=== PATIENT | female | born 1985 | race Hispanic/Latino ===

== ENCOUNTER 2016-09-04 08:38 | Observation (INO) | payer BC ==
[2016-09-03 15:38] VITALS: BMI 26.6
[2016-09-04 09:08] LABS: MEAN CELL VOLUME 92.2 fl (81.0-99.0); MEAN CORPUSCULAR HEMOGLOBIN 30.6 pg (27.0-31.0); MEAN CORPUSCULAR HGB CONC 33.1 g/dL (33.0-37.0); RED CELL DISTRIBUTION WIDTH 13.1 % (11.5-14.5); WHITE BLOOD COUNT 7.5 K/uL (4.8-10.8)
[2016-09-04] MEDS ORDERED: Bupivacaine 0.5% Inj(30mL) ONE (09:08)
[2016-09-04] MEDS ORDERED: Rocuronium 10 mg/ml (5 ml) ONE ×3 (09:45→13:05)
[2016-09-04] MEDS ORDERED: Midazolam 2 MG/2 ML VIAL ONE (09:45)
[2016-09-04] MEDS ORDERED: Propofol 10 mg/ml Inj (20 ML) ONE (09:45)
[2016-09-04] MEDS ORDERED: Succinylcholine 200 mg/10 ml Inj IV ONE (09:45)
[2016-09-04] MEDS ORDERED: ePHEDrine 50 mg/ml Inj ONE (09:45)
[2016-09-04] MEDS ORDERED: Lactated Ringer's 1,000 ML IV ONE ×3 (10:00→14:30)
[2016-09-04] MEDS ORDERED: Neostigmine Methylsulfate 3mg/3ml Syringe IV ONE (14:24)
[2016-09-04] MEDS ORDERED: Sevoflurane - Inhalation Anesthetic Liq (250 ml) ONE (14:28)
[2016-09-04] MEDS ORDERED: Lactated Ringer's 1,000 ML IV SCH (15:40)
[2016-09-04] MEDS ORDERED: HYDROmorphone 0.5 mg/0.5 ml ISec IVP PRN (15:40)
--- NOTE | 2016-09-04 16:06 | PCM.SURG1 ---
<Kenya Santiago - Last Filed: 09/04/16 16:02> Surgeon's Initial Post Op Note - Surgeon's Notes Surgeon: Dr. Barron Supervisor Mold Yard: Lizett Quintero, Dr. Santiago PGY2, Dr. Medley Anesthesia Administered By: Whiteyulia Pre-Operative Diagnosis: Endometriosis Operative Findings: see operative report Post-Operative Diagnosis: same Operation Performed: Davinci Endometriosis. Cystoscopy with b/l ureteral stenting w/ dye injection. Ureterolysis. B/L Ovarian Cystectomy Specimen/Specimens Removed: endometriosis Estimated Blood Loss: EBL {In ML}: 100 Blood Products Given: N/A Drains Used: No Drains Post-Op Condition: Good Date of Surgery/Procedure: 09/04/16 Time of Surgery/Procedure: 16:10 <Zac Barron - Last Filed: 09/08/16 14:01> Surgeon's Initial Post Op Note - Surgeon's Notes Supervisor [employer]: Lizett Quintero, Dr. 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
--- NOTE | 2016-09-04 16:12 | PCM.SURG1 ---
Surgeon's Initial Post Op Note - Surgeon's Notes Surgeon: Dr. Medley Oil Change Technician: Dr. Barron, Lizett Quintero, Dr. Santiago PGY2 Type of Anesthesia: General Endo Anesthesia Administered By: Abran Pre-Operative Diagnosis: Endometriosis Operative Findings: endometriosis with involvment of appendix and rectum Post-Operative Diagnosis: same Operation Performed: Robotic Appendectomy. Lysis of adhesions Specimen/Specimens Removed: appendix Estimated Blood Loss: EBL {In ML}: 10 Blood Products Given: N/A Drains Used: No Drains Post-Op Condition: Good Date of Surgery/Procedure: 09/04/16 Time of Surgery/Procedure: 16:12
[2016-09-04] MEDS ORDERED: Oxycodone/Acetaminophen 5/325 mg Tab PO PRN (20:00)
[2016-09-05] MEDS: Lactated Ringer's 1,000 ML IV SCH ×2 (02:14→07:30)
[2016-09-05] MEDS ORDERED: Levothyroxine 100 MCG TAB PO SCH (06:30)
--- NOTE | 2016-09-05 08:23 | CP.PCM.DIS ---
Provider - Provider Date of Admission: 09/04/16 15:54 Attending physician: Zac Barron Primary care physician: Zac Barron Time Spent in preparation of Discharge (in minutes): 20 Hospital Course - Lab Results Lab Results: Most Recent Lab Values WBC 7.5 K/uL (4.8-10.8) 09/04/16 08:55 RBC 4.45 Mil/uL (3.80-5.20) 09/04/16 08:55 Hgb 13.6 g/dL (12.0-16.0) 09/04/16 08:55 Hct 41.0 % (34.0-47.0) 09/04/16 08:55 MCV 92.2 fl (81.0-99.0) 09/04/16 08:55 MCH 30.6 pg (27.0-31.0) 09/04/16 08:55 MCHC 33.1 g/dL (33.0-37.0) 09/04/16 08:55 RDW 13.1 % (11.5-14.5) 09/04/16 08:55 Plt Count 280 K/uL (130-400) 09/04/16 08:55 Blood Type O POSITIVE 09/04/16 08:55 Blood Type Confirm O POSITIVE 09/04/16 09:07 Antibody Screen Negative 09/04/16 08:55 BBK History Checked No verified bt 09/04/16 08:55 - Hospital Course Hospital Course: 31 yo F admitted after undergoing robotic surgery for endometriosis. Pt did well postoperatively. She tolerated regular diet and was ambulating the hallways with no complaints. Pain was well controlled with PO medications. Pt was felt stable for discharge home with routine postoperative instruction and f/ u in office in 1 week. Discharge Exam - Head Exam Head Exam: NORMAL INSPECTION, NORMOCEPHALIC - Eye Exam Eye Exam: EOMI, Normal appearance Pupil Exam: NORMAL ACCOMODATION - Respiratory Exam Respiratory Exam: NORMAL BREATHING PATTERN. absent: Respiratory Distress - GI/Abdominal Exam GI & Abdominal Exam: Soft. absent: Distended, Firm, Guarding, Rebound, Tenderness Additional comments: surgical incisions C/D/I - Neurological Exam Neurological exam: Alert, Oriented x3 - Psychiatric Exam Psychiatric exam: Normal Affect, Normal Mood - Skin Skin Exam: Dry, Intact Discharge Plan - Discharge Medications Prescriptions: oxyCODONE/Acetaminophen [Percocet 5/325 mg Tab] 2 tab PO Q4 PRN #20 tab PRN Reason: Pain, Moderate (4-7) - Follow Up Plan Condition: GOOD Disposition: HOME/ ROUTINE Additional Instructions: You may remove dressings tomorrow. You may shower, no soaking in bathtub or swimming. Resume regular diet and light activity. Avoid any heavy lifting > 10lbs for 4 weeks. Make an appt. to see Dr. Barron in office in 1 week. Take percocet as prescribed for pain. Referrals: Zac Barron [Primary Care Provider] -
[2016-09-05 08:24] VITALS: BP 112/75; PULSE 88; RESP 20; TEMP 98; O2SAT 96
--- NOTE | 2016-09-05 11:22 | OP ---
PROCEDURE DATE: 09/04/2016 PREOPERATIVE DIAGNOSES: 1. Endometriosis. 2. Extensive post infectious adhesion of the uterus and cervix to the rectum. 3. Endometriosis involving the appendix. POSTOPERATIVE DIAGNOSES: 1. Endometriosis. 2. Extensive post infectious adhesion of the uterus and cervix to the rectum. 3. Endometriosis involving the appendix. PROCEDURE DONE: 1. Robotic extensive lysis of adhesion in the pelvis. 2. Robotic appendectomy. SURGEON: Wes Medley MD TRAVEL REGISTERED NURSE PACU: Dr. Zac Barron ANESTHESIA: General endotracheal tube anesthesia. ESTIMATED BLOOD LOSS: Around 10 mL for this part of the procedure. COMPLICATIONS: None. PATHOLOGY: Appendix was sent for the pathology. INTRAOPERATIVE FINDINGS: The patient had extensive adhesion of the rectum to the cervix as well as t o the vaginal wall and the patient also had endometriosis involving the appendix deep as well as the body of the appendix. INTRAOPERATIVE STEPS: This is a 31-year-old female who was undergoing robotic endometriosis excision by Dr. Barron and intraoperative consult was called for extensive pelvic adhesions as well as for en dometriosis involving the appendix. The patient was already under anesthesia and patient was being o perated by Dr. Barron and now my part of the operation began and through the console using the same i nstruments and the same port site, extensive lysis of adhesion of the rectum from the cervix as well as vaginal maya was done with blunt and sharp dissection. Some part of endometriosis was also remov ed and now the appendix was examined and the appendix appeared to be thickened and had abnormal depos it and the mesoappendix was resected with vessel sealer and the base of the appendix was resected wit h CAROLYN and appendix was taken out through the 12 mm port site and sent to the table for the pathology. There was a proper hemostasis in each and every part of the procedure. Up to this part of the proc edure, there was no apparent complication and the patient tolerated the procedure well. Wes Medley MD cc: [id number] TT: 09/05/2016 11:22:11 an
--- NOTE | 2016-09-08 15:59 | OP ---
PROCEDURE DATE: 09/05/2016 SURGEON: Zac Barron MD ASSISTED BY: Nelida Kaur PA-C and Vicky Santiago, PGY-2 PREOPERATIVE DIAGNOSES: Bilateral ovarian cysts, pelvic endometriosis, pelvic pain, dysmenorrhea, dyspareunia and pelvic adhesions. POSTOPERATIVE DIAGNOSES: Stage IV endometriosis, bilateral large ovarian endometriosis 7 cm in diameter, pelvic endometriosis diffuse, obliteration of the cul-de-sac, bowel adhesions and endometriosis implants on the appendix. PROCEDURE PERFORMED: cystoscopy with left and right urethral catheterization, bilateral urethral retrograde injection of indigo carmine dye, laparoscopy, robotic da Teri excision of endometriosis, ovariolysis, bilateral ovarian cystectomy (7 cm each), bilateral ureterolysis and enterolysis and excision of endometriosis, excision of an anterior rectosigmoid endometriosis, bilateral ovarian suspension. ( high complexity surgery duration 300 mins) There was an intraoperative consult for Dr. Medley from general surgery to perform an appendectomy, which he performed at the end of the procedure. COMPLICATIONS: None. SAMPLES: Multiple samples sent to pathology including 2 very large ovarian cysts and peritoneal endometriosis implants, rectal endometriosis implants. DRAINS: Browne catheter. ESTIMATED BLOOD LOSS: 100 mL. BRIEF HISTORY: This patient is a 31-year-old female who presented with a long history of dysmenorrhea, dyspareunia, ovulatory pain and severe pelvic pain. She was known to have large endometriotic cysts which had prompted her to present to the Emergency Room on multiple occasions for severe pelvic pain and cyst rupture. Upon examination in the office, presence of the cysts was confirmed being each cyst 7 cm in diameter and the size of the cyst was confirmed by ultrasonographic examination as well as by CT scan. The patient also had MRI confirming the findings as well as presence of anterior rectosigmoid implants of endometriosis. These were visible. Prior to the surgery, the patient was counseled to the risks and the benefits of the procedure with regards to the likelihood of a successful outcome in terms of pain relief. Alternative modalities of treatment and potential risks were also discussed with ample opportunity for the patient to ask and receive answers to the questions. I actually consulted with the patient in person at least twice and over the phone 2 more times prior to the surgery. Prior to the procedure, the patient demonstrated understanding of the potential risks of the procedures including, but not limited to, bleeding, hemorrhage and blood transfusion, infection, sepsis, injury to the urethra, the bladder, the ureter or the kidney , ureteral fistula, stent malfunction, uterine perforation, bowel perforation requiring a colostomy or an ileostomy and pelvic abscess. After obtaining the consent, the patient was taken to the OR and the procedure was commenced. DESCRIPTION OF PROCEDURE: After adequate consent was obtained, the patient was brought to the operating room and placed on the operating table in the supine position. An intravenous catheter was started and antibiotics were administered. After satisfactory anesthesia was induced, the patient was positioned in the dorsal lithotomy position. The patient was in stable cardiac and pulmonary parameters in this position and all areas prone to pressure and/ or injury were padded. The external genitalia were then sterilely prepped and draped in the standard fashion as well as the abdomen. A timeout was performed. At this point, a cystoscopy was performed. The cystoscope was introduced in the bladder under direct vision. Triplett cystoscopy was performed and attention was paid to both ureteral orifices, which were in a normal anatomic position. The left ureteral orifice was catheterized with a 10 Uzbek open-ended urethral catheter. A solution of ICG was then injected for a total 5 mL into the left ureter after the ureteral catheter was advanced into the distal ureter. The ureteral catheter was then removed. Attention was paid to the right ureteral orifice. At this point, a ureteral catheter was advanced in to the level of the right distal ureter and an additional 4 mL of IC-Green were injected into the right ureter. The ureteral catheter was then removed. The bladder was inspected and noted to be free of tumor, stones or bleeding sources. The cystoscope was removed and a 16 Uzbek Browne catheter was placed. At this point, attention was in the vaginal area where a speculum was placed in the vagina. The anterior lip of the cervix was grasped and a Valtchev uterine manipulator was placed in the uterine cavity. At this point, attention was on the abdomen where after re-gowning and re-gloving, an incision was made below the umbilicus with a standard open laparoscopy technique. The abdominal cavity was entered in a blunt fashion and a blunt trocar was inserted and the abdomen was insufflated. Under direct visualization, 4 additional trocars were inserted, two 8 mm trocars in the right and left upper quadrant, a 12 mm trocar in the left mid quadrant and a 5 mm trocar in the right mid quadrant. At this point, the da Teri Xi robot was brought into the surgical field and the robot was docked. Upon looking in the pelvis, there were findings of evidence of stage IV endometriosis. There were 2 extremely large cysts, each 7-10 cm in diameter, in both the right and left ovary. Both ovaries were attached to the pelvis and the sigmoid as well as attached to each other. There was evidence of some adhesions in the front involving the bladder. The appendix appeared to be involved with endometriosis, superficial and endometriosis implants. The patient had been consented for an appendectomy as this finding was expected. At this point, attention was first in the pelvis where both ovaries were dissected off each other, off the sigmoid rectum and off the pelvic sidewall and elevated. They were then drained and an ovariopexy was performed on both sides utilizing a 2-0 locking suture and both ovaries were then suspended to the anterior abdominal wall. At this point, the pelvis was visualized. The cul -de-sac was completely obliterated and there appeared to be implants of endometriosis, both on the left and the right pelvic sidewall, extending almost from the pelvic brim all the way down to the cul-de-sac. At this point, attention was on the left hand side where after dissecting the sigmoid from the left pelvic sidewall, the peritoneal and the pelvic brim was opened and the ureter was identified utilizing fluorescent technology and followed and dissected and lateralized all the way down to the lower part of the pelvis at the level of the uterine artery. This dissection was extremely gentle and the ureter was not devascularized throughout the ureterolysis. At this point, the peritoneum was progressively peeled off and a very large area of peritoneum containing deep infiltrating endometriosis was excised. The hypogastric nerve was identified and preserved on the left side. At this point, a progressive dissection was performed into the left perirectal space and attention was then on the right hand side. In a similar fashion as it was performed on the left side, the peritoneum was entered at the level of the pelvic brim and after identifying the vessels and the ureter utilizing fluorescent ICG technology, a dissection was performed all the way down from the pelvic brim, following the ureter all the way down to the uterine vessels. This area was the most affected by endometriosis and the peritoneum was thickened with invasive endometriosis. An extensive dissection was performed and the left perirectal space was entered and it was identified that the rectosigmoid was attached to the posterior aspect of the cervix of the uterus obliterating completely the cul -de-sac. Proceeding very carefully from known to unknown in the avascular space , the sigmoid was progressively dissected off the back of the uterus by entering the rectovaginal space and progressively dissecting it off. This was done with extreme care to avoid injuring the bowel. After dissecting the uterus down and opening up the rectovaginal space, an area of endometriosis was identified on the surface of the rectosigmoid and it was shaved off without using any current, purely just cut utilizing robotic scissors. At this point, a large swath of peritoneum was excised containing deep infiltrating endometriosis from the right pelvic sidewall and the ovarian fossa on the right hand side. This was a very laborious dissection that took quite a bit of time as the adhesions were very thickened and maximum attention was made for nerve preservation and to prevent vascular or ureteral injury. Throughout the procedure, IC-Green and fluorescent technology was utilized to identify the presence and position of the ureter throughout the procedure. At this point, Dr. Medley came in and performed an appendectomy, which he will dictate separately. At this point, the ovaries were examined and first on the left hand side, a very large endometriotic cyst was excised and it was peeled off the ovary without damaging neither the cortex nor the hilum of the ovary and with using minimal cauterization and minimal bleeding was observed. The cyst was about 7 cm in diameter and it was sent to pathology. Similarly, on the right hand side, again, a large cyst was excised, again 7 cm in diameter and peeled off without damaging the hilum of the ovary or removing any ovarian tissue at all throughout the whole procedure. So both ovaries were perfectly preserved. Given the fact that there was no bleeding from the ovary or at least minimal bleeding, it was not necessary to either coagulate or suture the ovaries. At this point, attention was on the anterior part of the uterus where adhesions between the bladder and the anterior part of the uterus were taken down in a sharp fashion. There were also some implants of endometriosis on the right and left peritubal areas, but as the patient desired to preserve her fertility, no electrical energy was used on that area, not to damage the tubes bilaterally. The fimbriated ends of both fallopian tubes, although slightly conglutinated, appeared to be normal otherwise. At this point, the pelvis was abundantly irrigated. It was checked for hemostasis that appeared to be excellent. About 500 mL of saline were left into the pelvis for prevention of adhesions. The robot was undocked, the instruments were removed and the abdomen was desufflated. The incisions were closed in layers with PDS for the fascia and 4-0 Monocryl for the skin. The instruments were removed from the vagina and the cervix was inspected, appeared to be well healed. At this point , the patient was woken up and taken to recovery room in excellent condition. Zac Barron MD cc: [id number] TT: 09/08/2016 15:58:55 en MTDD
== END 2016-09-05 12:53 | disposition home or self-care (01) ==
LOC: H.OPSURG 08:38 → INTOOBSV 15:54 → H.MEDSURG1 15:54
PROVIDERS: ADMIT Obstetrics & Gynecology Reproductive Endocrinology; ATTEND Obstetrics & Gynecology Reproductive Endocrinology
DX: N73.6 Female pelvic peritoneal adhesions (postinfective) (principal); N80.5 Endometriosis of intestine; N80.0 Endometriosis of uterus
CPT/HCPCS: 36415; 44180; 44970; 85027; 86850; 86900; 88304; 88305; C1729; G0378; J0330; J0690; J1885; J2001; J2250; J2405; J2704; J2710; J2765; J3010; J7030; J7120; S2900